=== PATIENT | male | born 1935 | race Caucasian/White ===

== ENCOUNTER 2016-07-29 11:52 | Emergency (ER) | payer MEDICARE, OTHER ==
[~2016-07-29] VITALS: Ht 182.9 cm; Wt 101.6 kg
[2016-07-29 14:03] LABS: Basophils # (auto) 0 uL; Basophils % (auto) 0.3 % (0.0-2.0); Eosinophils # (auto) 0.1 uL; Eosinophils % (auto) 0.7 % (0.0-7.0); Hematocrit 40.8 % (41.0-53.0); Hemoglobin 13.8 g/dL (13.5-17.5); Lymphocytes # (auto) 0.7 uL; Mean Corpuscular Hgb Conc. 33.9 g/dL (32.0-36.0); Mean Corpuscular Volume 88.4 fL (80.0-100.0); Mean Platelet Volume 8.4 fL (7.4-10.4); Monocytes # (auto) 0.8 uL; Monocytes % (auto) 10.7 % (0.0-12.0); Neutrophils % (auto) 79.3 % (37.0-80.0); Platelet Count (auto) 226 10^3/uL (140-450); Red Cell Distribution Width 15.8 % (11.6-16.0); White Blood Cell 7.6 10^3/uL (4.4-10.8)
[2016-07-29 14:27] LABS: Albumin 3.9 g/dL (3.4-5.0); BUN/Creatinine Ratio 17.5; Bilirubin, Total 0.4 mg/dL (0.2-1.0); Calcium 9.4 mg/dL (8.5-10.1); Total Protein 8.4 g/dL (6.4-8.2)
[2016-07-29 16:50] VITALS: BP 138/84
== END 2016-07-29 18:44 | disposition left against medical advice (07) ==
LOC: ER 11:52
DX: M79.632 Pain in left forearm (principal); R42 Dizziness and giddiness; W19.XXXA Unspecified fall, initial encounter; Z53.21 Procedure and treatment not carried out due to patient leaving prior to being seen by health care provider; Y93.89 Activity, other specified; Y99.8 Other external cause status; Y92.89 Other specified places as the place of occurrence of the external cause
CPT/HCPCS: 36415; 80053; 85025; 93005

== ENCOUNTER 2017-02-22 08:32 | Emergency (ER) | payer MEDICARE, OTHER ==
[~2017-02-22] VITALS: Ht 182.9 cm; Wt 100.7 kg
[2017-02-22 10:09] VITALS: BP 93/52
== END 2017-02-22 10:36 | disposition home or self-care (01) ==
LOC: ER 08:37
DX: S80.11XA Contusion of right lower leg, initial encounter (principal); S80.12XA Contusion of left lower leg, initial encounter; I48.91 Unspecified atrial fibrillation; X58.XXXA Exposure to other specified factors, initial encounter; Y93.89 Activity, other specified; Y92.89 Other specified places as the place of occurrence of the external cause; Y99.8 Other external cause status
CPT/HCPCS: 93005; 93971

== ENCOUNTER 2018-06-27 00:23 | Observation (INO) | payer MEDICARE, OTHER ==
[~2018-06-27] VITALS: Ht 182.9 cm; Wt 78.0 kg
[2018-06-27 07:03] LABS: Basophils # (auto) 0 uL; Basophils % (auto) 0.5 % (0.0-2.0); Eosinophils # (auto) 0 uL; Eosinophils % (auto) 0.6 % (0.0-7.0); Hematocrit 32.4 % (41.0-53.0); Hemoglobin 10.5 g/dL (13.5-17.5); Lymphocytes # (auto) 0.6 uL; Lymphocytes % (auto) 8.1 % (10.0-50.0); Mean Corpuscular Hemoglobin 28.4 pg (28.0-32.0); Mean Corpuscular Hgb Conc. 32.4 g/dL (32.0-36.0); Mean Corpuscular Volume 87.7 fL (80.0-100.0); Monocytes # (auto) 0.8 uL; Monocytes % (auto) 9.9 % (0.0-12.0); Neutrophils # (auto) 6.3 uL; Neutrophils % (auto) 80.9 % (37.0-80.0); Platelet Count (auto) 192 10^3/uL (140-450); Red Cell Distribution Width 15.9 % (11.8-14.3); White Blood Cell 7.8 10^3/uL (4.4-10.8)
[2018-06-27 07:18] LABS: Albumin 3.6 g/dL (3.4-5.0); Anion Gap 8 (5-15); BUN/Creatinine Ratio 16.7; Blood Alcohol < 3.0 mg/dL (0-5); Blood Urea Nitrogen 21 mg/dL (7-18); Calcium 9.2 mg/dL (8.5-10.1); Carbon Dioxide 28 mmol/L (21-32); Chloride 105 mmol/L (98-107); GFR African American 70 mL/min; GFR Non-African American 58 mL/min; Glucose 131 mg/dL (74-106); Magnesium 2.4 mg/dL (1.6-2.6); Potassium 4.5 mmol/L (3.5-5.1); Sodium 141 mmol/L (136-145)
[2018-06-27 07:23] LABS: Alanine Aminotransferase 18 U/L (16-61); Alkaline Phosphatase 82 U/L (45-117); Aspartate Aminotransferase 20 U/L (15-37); Bilirubin, Total 0.3 mg/dL (0.2-1.0); Total Protein 7.6 g/dL (6.4-8.2)
[2018-06-27 08:01] LABS: INR 1.04 (0.9-1.15); Partial Thromboplastin Time 27.5 sec (23.78-33.04)
[2018-06-27] MEDS ORDERED: cloNIDine HCL 0.1 MG TAB PO ONE (10:00)
[2018-06-27 10:29] LABS: Alcohol, Urine < 3.0 mg/dL (0-5); Amphetamine Screen, Urine NEGATIVE (NEGATIVE); Barbiturate Scree,Urine NEGATIVE (NEGATIVE); Benzodiazephine Screen, Urine NEGATIVE (NEGATIVE); Cannabinoid Screen, Urine NEGATIVE (NEGATIVE); Cocaine Screen, Urine NEGATIVE (NEGATIVE); Opiate Scree,Urine NEGATIVE (NEGATIVE); Phencyclidine Screen, Urine NEGATIVE (NEGATIVE); Urine Bacteria NONE SEEN /hpf (None Seen); Urine Blood Negative /uL (Negative); Urine Mucus FEW (None Seen); Urine Specific Gravity 1.018 (1.001-1.035); Urine WBC 18 /hpf (0 - 3)
[2018-06-27] MEDS ORDERED: IOHEXOL 350 MG/ML 100ML IJ ONE (11:54)
[2018-06-27 22:21] VITALS: BP 150/79
== END 2018-06-27 22:47 | disposition home or self-care (01) | DRG 880 ==
LOC: EDBD 00:23 → ER 00:28 → OVERFLOW 00:29 → ER 22:47
PROVIDERS: ADMIT Emergency Medicine; ATTEND Emergency Medicine
DX: R45.851 Suicidal ideations (principal); F33.3 Major depressive disorder, recurrent, severe with psychotic symptoms; E11.9 Type 2 diabetes mellitus without complications; I10 Essential (primary) hypertension; I48.91 Unspecified atrial fibrillation; F41.9 Anxiety disorder, unspecified; M19.90 Unspecified osteoarthritis, unspecified site; I25.2 Old myocardial infarction; Z79.899 Other long term (current) drug therapy; Z95.0 Presence of cardiac pacemaker
CPT/HCPCS: 36415; 71046; 71275; 80053; 80307; 80320; 81001; 83735; 84443; 84484; 85025; 85379; 85610; 85730; 93005; 99284; G0378; Q9967

== ENCOUNTER 2018-08-02 01:50 | Emergency (ER) | payer MEDICARE, OTHER ==
[~2018-08-02] VITALS: Ht 182.9 cm; Wt 78.0 kg
[2018-08-02] MEDS ORDERED: LORazepam 2MG/ML-1ML VIAL IV ONE (02:45)
[2018-08-02] MEDS ORDERED: SODIUM CHLORIDE 0.9% 1,000 ML IV ONE (02:45)
[2018-08-02 02:56] LABS: Basophils # (auto) 0 uL; Basophils % (auto) 0.2 % (0.0-2.0); Eosinophils # (auto) 0 uL; Eosinophils % (auto) 0.5 % (0.0-7.0); Hematocrit 30.6 % (41.0-53.0); Lymphocytes # (auto) 0.5 uL; Lymphocytes % (auto) 5.6 % (10.0-50.0); Mean Corpuscular Hemoglobin 28.1 pg (28.0-32.0); Mean Corpuscular Hgb Conc. 32.7 g/dL (32.0-36.0); Mean Corpuscular Volume 85.9 fL (80.0-100.0); Monocytes # (auto) 0.6 uL; Monocytes % (auto) 7.1 % (0.0-12.0); Neutrophils # (auto) 7.3 uL; Neutrophils % (auto) 86.6 % (37.0-80.0); Platelet Count (auto) 194 10^3/uL (140-450); Red Blood Cells 3.56 10^6/uL (4.5-5.90); Red Cell Distribution Width 15.9 % (11.8-14.3); White Blood Cell 8.4 10^3/uL (4.4-10.8)
[2018-08-02 03:06] LABS: Albumin 3.6 g/dL (3.4-5.0); Anion Gap 9 (5-15); BUN/Creatinine Ratio 15.6; Blood Alcohol < 3.0 mg/dL (0-5); Blood Urea Nitrogen 19 mg/dL (7-18); Carbon Dioxide 26 mmol/L (21-32); Chloride 105 mmol/L (98-107); GFR African American 73 mL/min; GFR Non-African American 60 mL/min; Glucose 148 mg/dL (74-106); Magnesium 2.1 mg/dL (1.6-2.6); Potassium 3.9 mmol/L (3.5-5.1); Salicylate < 1.7 mg/dL (2.8-20.0); Sodium 140 mmol/L (136-145)
[2018-08-02 03:19] LABS: Alanine Aminotransferase 16 U/L (16-61); Alkaline Phosphatase 91 U/L (45-117); Aspartate Aminotransferase 16 U/L (15-37); Bilirubin, Total 0.3 mg/dL (0.2-1.0); Creatine Kinase IFCC 51 U/L (39-308); Total Protein 7.8 g/dL (6.4-8.2)
[2018-08-02 03:20] LABS: Digoxin (Lanoxin) 0.4 ng/mL (0.8-2)
[2018-08-02 03:51] LABS: Acetaminophen < 2.0 ug/mL (10-30)
[2018-08-02 05:06] LABS: Urine Bacteria NONE SEEN /hpf (None Seen); Urine Blood Negative /uL (Negative); Urine Specific Gravity 1.019 (1.001-1.035); Urine WBC 1 /hpf (0 - 3)
[2018-08-02 05:12] LABS: Alcohol, Urine < 3.0 mg/dL (0-5); Amphetamine Screen, Urine NEGATIVE (NEGATIVE); Barbiturate Scree,Urine NEGATIVE (NEGATIVE); Benzodiazephine Screen, Urine NEGATIVE (NEGATIVE); Cannabinoid Screen, Urine NEGATIVE (NEGATIVE); Opiate Scree,Urine NEGATIVE (NEGATIVE); Phencyclidine Screen, Urine NEGATIVE (NEGATIVE)
[2018-08-02 05:16] LABS: Cocaine Screen, Urine NEGATIVE (NEGATIVE)
[2018-08-02] MEDS ORDERED: cloNIDine HCL 0.1 MG TAB PO ONE (13:30)
[2018-08-02] MEDS ORDERED: ZOLPIDEM TARTRATE 5 MG TAB PO PRN (17:30)
[2018-08-02 23:04] VITALS: BP 168/85
== END 2018-08-02 23:24 ==
LOC: EDBD 01:50 → ER 01:52
DX: R45.851 Suicidal ideations (principal); F32.9 Major depressive disorder, single episode, unspecified; I48.91 Unspecified atrial fibrillation; M19.90 Unspecified osteoarthritis, unspecified site; E11.9 Type 2 diabetes mellitus without complications; I10 Essential (primary) hypertension; I25.2 Old myocardial infarction; Z95.1 Presence of aortocoronary bypass graft; Z95.0 Presence of cardiac pacemaker
CPT/HCPCS: 36415; 71045; 80053; 80162; 80307; 80320; 80329; 81001; 82550; 83605; 83735; 83874; 83880; 84443; 84484; 85025; 96374; 99285; J2060; J7030

== ENCOUNTER 2019-01-27 13:11 | Inpatient (IN) | payer MEDICARE, OTHER ==
[~2019-01-27] VITALS: Ht 177.8 cm; Wt 86.2 kg
[2019-01-27] MEDS ORDERED: SODIUM CHLORIDE 0.9% 1,000 ML IV ONE (16:07)
[2019-01-27 17:52] LABS: Basophils # (auto) 0 uL; Eosinophils # (auto) 0 uL; Eosinophils % (auto) 0.6 % (0.0-7.0); Hemoglobin 11.1 g/dL (13.5-17.5); Lymphocytes # (auto) 0.8 uL; Monocytes # (auto) 0.8 uL; Red Blood Cells 4.15 10^6/uL (4.5-5.90)
[2019-01-27 17:54] LABS: Basophils % (auto) 0.4 % (0.0-2.0); Mean Corpuscular Hemoglobin 26.6 pg (28.0-32.0); Mean Corpuscular Hgb Conc. 32.5 g/dL (32.0-36.0); Mean Corpuscular Volume 81.8 fL (80.0-100.0); Monocytes % (auto) 10.7 % (0.0-12.0); Neutrophils # (auto) 5.6 uL; Neutrophils % (auto) 77.3 % (37.0-80.0); Platelet Count (auto) 197 10^3/uL (140-450); Red Cell Distribution Width 17.4 % (11.8-14.3); White Blood Cell 7.2 10^3/uL (4.4-10.8)
[2019-01-27 18:04] LABS: Albumin 3.6 g/dL (3.4-5.0); Anion Gap 9 (5-15); Blood Urea Nitrogen 21 mg/dL (7-18); Calcium 9.1 mg/dL (8.5-10.1); Carbon Dioxide 26 mmol/L (21-32); Chloride 101 mmol/L (98-107); Glucose 113 mg/dL (74-106); Magnesium 2.4 mg/dL (1.6-2.6); Sodium 136 mmol/L (136-145)
[2019-01-27 18:08] LABS: Alanine Aminotransferase 18 U/L (16-61); Alkaline Phosphatase 88 U/L (45-117); Aspartate Aminotransferase 23 U/L (15-37); Bilirubin, Total 0.3 mg/dL (0.2-1.0); GFR African American 69 mL/min; GFR Non-African American 57 mL/min; Total Protein 7.9 g/dL (6.4-8.2)
[2019-01-27 18:44] LABS: BUN/Creatinine Ratio 16.4
[2019-01-27] MEDS ORDERED: cloNIDine HCL 0.1 MG TAB PO ONE (19:15)
[2019-01-27 20:44] LABS: Urine Bacteria NONE SEEN /hpf (None Seen); Urine Blood Negative /uL (Negative); Urine Hyaline Cast FEW /lpf (0 - 2); Urine Mucus FEW (None Seen); Urine Specific Gravity 1.015 (1.001-1.035); Urine WBC 2 /hpf (0 - 3)
[2019-01-27 20:55] LABS: Alcohol, Urine < 3.0 mg/dL (0-5); Amphetamine Screen, Urine NEGATIVE (NEGATIVE); Barbiturate Scree,Urine NEGATIVE (NEGATIVE); Benzodiazephine Screen, Urine NEGATIVE (NEGATIVE); Cannabinoid Screen, Urine NEGATIVE (NEGATIVE); Cocaine Screen, Urine NEGATIVE (NEGATIVE); Opiate Scree,Urine NEGATIVE (NEGATIVE); Phencyclidine Screen, Urine NEGATIVE (NEGATIVE)
[2019-01-27] MEDS ORDERED: TEMAZEPAM 15 MG CAP PO PRN (21:00)
[2019-01-27] MEDS ORDERED: ONDANSETRON HCL 4 MG/2 ML VIAL IV PRN (21:00)
[2019-01-27] MEDS ORDERED: DOCUSATE SOD 100 MG CAP PO PRN (21:00)
[2019-01-27] MEDS ORDERED: cloNIDine HCL 0.1 MG TAB PO PRN (21:00)
[2019-01-27] MEDS ORDERED: ACETAMINOPHEN 325 MG TAB PO PRN (21:00)
[2019-01-27] MEDS ORDERED: MORPHINE SULF INJ 2 MG/ML SYRINGE 1ML IV PRN (21:45)
[2019-01-27] MEDS ORDERED: MECLIZINE HCL 25 MG TAB PO PRN (21:45)
[2019-01-27] MEDS ORDERED: NITROGLYCERIN 0.4 MG SL TAB SL PRN (21:45)
[2019-01-27] MEDS ORDERED: METOPROLOL TARTRATE 25 MG TAB PO SCH (22:00)
[2019-01-27] MEDS: FAMOTIDINE 20 MG TAB PO SCH (22:08)
[2019-01-27 22:56] LABS: INR 1.12 (0.9-1.15)
--- NOTE | 2019-01-27 22:56 | NUR ---
Telemetry admit from ER ROZ CARTER admitted to Telemetry unit after SBAR received. Patient oriented to Melita Barbosa, primary RN, unit, room, bed, and unit policies regarding patient care and visiting hours. Patient now on continuous telemetry monitoring, tele box #65 and telemetry reading on arrival to unit is . Patient placed on bedside oxygen, weighed by bedscale and encouraged to call if they need something. All questions and concerns addressed, patient verbalized understanding. Note:
[2019-01-28 05:00] VITALS: BP 153/84
[2019-01-28 05:52] LABS: Basophils # (auto) 0 uL; Eosinophils # (auto) 0.1 uL; Hemoglobin 10.7 g/dL (13.5-17.5); Lymphocytes # (auto) 0.6 uL; Neutrophils # (auto) 3.7 uL; Nucleated Red Blood Cells % 0.1 %; White Blood Cell 5.1 10^3/uL (4.4-10.8)
[2019-01-28 05:57] LABS: Basophils % (auto) 0.8 % (0.0-2.0); Eosinophils % (auto) 1.7 % (0.0-7.0); Hematocrit 32.4 % (41.0-53.0); Lymphocytes % (auto) 12.1 % (10.0-50.0); Mean Corpuscular Volume 81.8 fL (80.0-100.0); Monocytes # (auto) 0.7 uL; Monocytes % (auto) 13.8 % (0.0-12.0); Neutrophils % (auto) 71.6 % (37.0-80.0); Platelet Count (auto) 175 10^3/uL (140-450); Red Blood Cells 3.96 10^6/uL (4.5-5.90); Red Cell Distribution Width 16.9 % (11.8-14.3)
[2019-01-28 06:11] LABS: Calcium 8.9 mg/dL (8.5-10.1); Potassium 4.2 mmol/L (3.5-5.1)
[2019-01-28] MEDS: LEVOTHYROXINE SODIUM 100 MCG TAB PO SCH (06:32)
[2019-01-28 09:00] VITALS: BP 119/64
[2019-01-28] MEDS: APIXABAN 5 MG TAB PO SCH ×2 (09:40→20:58)
[2019-01-28] MEDS: FAMOTIDINE 20 MG TAB PO SCH (09:41)
[2019-01-28] MEDS: DIGOXIN 0.125 MG TAB PO SCH (09:41)
[2019-01-28] MEDS ORDERED: ASPirin 81 mg TAB PO SCH (10:00)
[2019-01-28] MEDS ORDERED: ENOXAPARIN SOD 40 MG/0.4 ML SYRINGE SC SCH (10:00)
[2019-01-28 13:22] VITALS: BP 122/67
[2019-01-28] MEDS: SODIUM CHLORIDE 0.9% 1,000 ML IV SCH (16:00)
[2019-01-28 16:13] VITALS: BP_SYST 157; BP_SYST 80; BP_DIAS 51; BP_DIAS 81
--- NOTE | 2019-01-28 19:02 | NUR ---
Opening Shift Note Assumed care of patient, awake and alert. No S/S of distress/SOB or pain. Instructed on POC and to call for assist PRN, will continue to monitor for changes Q1hr and PRN. Side rails up x2. Bed locked in lowest position. Call light within reach. Bed alarm on for safety.
[2019-01-28] MEDS: LOVASTATIN 40 MG PO SCH (20:58)
[2019-01-28 22:00] VITALS: BP 145/81
--- NOTE | 2019-01-28 22:00 | NUR ---
Emptied colostomy bag brown soft stool drained from colostomy bag.
[2019-01-29] VITALS (10 sets, daily range): BP systolic 81–186; BP diastolic 51–123
--- NOTE | 2019-01-29 00:40 | NUR ---
Endorsed care to non profit job titles YARA Odom
--- NOTE | 2019-01-29 00:41 | NUR ---
Received report from Александр LIVINGSTON. Patient resting and in no distress. Will continue to monitor.
[2019-01-29] MEDS: MIDODRINE HCL 10 MG TAB PO SCH ×3 (05:32→17:46)
--- NOTE | 2019-01-29 05:48 | NUR ---
Emptied colostomy bag Approximately 250 ml of brown soft stool drained from colostomy bag.
[2019-01-29] MEDS: LEVOTHYROXINE SODIUM 100 MCG TAB PO SCH (06:42)
[2019-01-29] MEDS: SODIUM CHLORIDE 0.9% 1,000 ML IV SCH (09:13)
--- NOTE | 2019-01-29 09:20 | NUR ---
pt ambulated with physical therapy using walker to the door and back to room, pt tolerated it well.
--- NOTE | 2019-01-29 09:30 | NUR ---
colostomy bag emptied
--- NOTE | 2019-01-29 09:50 | NUR ---
Spoke to Dr. Stanley and Dr. Zambrano at nurses station, made aware of the orthostatic blood pressure supine 160/83 sitting 112/71 standing 81/[address] Zambraon pt will continue taking midodrine as ordered and pt is okay to go home today or tomorrow.
[2019-01-29] MEDS: APIXABAN 5 MG TAB PO SCH ×2 (10:08→21:53)
[2019-01-29] MEDS: FAMOTIDINE 20 MG TAB PO SCH (10:09)
[2019-01-29] MEDS: DIGOXIN 0.125 MG TAB PO SCH (10:09)
--- NOTE | 2019-01-29 10:10 | NUR ---
pt seen by Dr. Stanley pt made aware for possible discharge tomorrow. to continue IV fluids as ordered.
--- NOTE | 2019-01-29 11:40 | NUR ---
called [employer] tel# [phone] for pacemaker interrogation spoke to Suzette.
--- NOTE | 2019-01-29 14:53 | NUR ---
NUTRITION ASSESSMENT NOTES Please refer to link notes of nutrition screen form filed under the intervention section of the plan of care for further details. Est. Needs: 1700 kcal to 2150 kcal (20-25 kcal/kgBW), 68 gms to 85 gms pro (0.8-1.0 gms/kgBW). Will continue to monitor pertinent labs and reassess nutrient need prn Thank you. Addendum: 01/29/19 at [address] Amended: Links added.
--- NOTE | 2019-01-29 16:10 | NUR ---
Received Consult to arrange home health to be resumed after discharged with [facility]. [employer] called [facility] to resume services. Spoke with Dipika and gave information about order. Faxed information to [facility]/ fax [phone]/ phone [phone]. Received confirmation.
--- NOTE | 2019-01-29 19:16 | NUR ---
Opening Shift Note Assumed care of patient, awake and alert. No S/S of distress/SOB or pain. Instructed on POC and to call for assist PRN, will continue to monitor for changes Q1hr and PRN. Side rails up x2. Bed locked in lowest position. Call light within reach.
--- NOTE | 2019-01-29 21:00 | NUR ---
Received a call from Hasmukh with [employer]. This RN was told that we needed to use our automatic pacemaker reader in order for them to assess the pacemaker.
[2019-01-29] MEDS: LOVASTATIN 40 MG PO SCH (21:52)
--- NOTE | 2019-01-29 23:30 | NUR ---
Automatic pacemaker reader completed. Will notify [employer].
--- NOTE | 2019-01-29 23:42 | NUR ---
Called [employer] to notify them regarding the completion of the automatic pacemaker reader. [employer] will fax over a copy.
--- NOTE | 2019-01-29 23:48 | NUR ---
Received report from [employer] regarding pacemaker. Will place copy in the chart.
[2019-01-30] MEDS: SODIUM CHLORIDE 0.9% 1,000 ML IV SCH (03:27)
[2019-01-30 04:45] VITALS: BP 164/97
[2019-01-30] MEDS: MIDODRINE HCL 10 MG TAB PO SCH ×2 (06:49→10:00)
[2019-01-30] MEDS: LEVOTHYROXINE SODIUM 100 MCG TAB PO SCH (06:49)
--- NOTE | 2019-01-30 07:20 | NUR ---
Endorsed care to day shift RN.
--- NOTE | 2019-01-30 07:30 | NUR ---
Opening Shift Note Assumed care of patient, awake and alert. No S/S of distress/SOB or pain. Instructed on POC and to call for assist PRN, will continue to monitor for changes Q1hr and PRN.
[2019-01-30 09:00] VITALS: BP_SYST 112; BP_SYST 119; BP_SYST 66; BP_SYST 85; BP_DIAS 40; BP_DIAS 42; BP_DIAS 60; BP_DIAS 66
[2019-01-30] MEDS: APIXABAN 5 MG TAB PO SCH (10:01)
[2019-01-30] MEDS: FAMOTIDINE 20 MG TAB PO SCH (10:01)
[2019-01-30] MEDS: DIGOXIN 0.125 MG TAB PO SCH (10:01)
--- NOTE | 2019-01-30 10:30 | NUR ---
Dr. Stanley in to see patient as hospitalist.
[2019-01-30 13:00] VITALS: BP 119/66
[2019-01-30] MEDS ORDERED: MID10T PO (13:02)
== END 2019-01-30 14:30 | disposition home health service (06) | DRG 312 ==
LOC: EDBD 13:11 → EDUNIT# 13:11 → ER 13:13 → TELE 13:14 → TELE-WESTW 22:48
PROVIDERS: ADMIT Nurse Practitioner; ATTEND Internal Medicine
PROC: 4B02XSZ Measurement of Cardiac Pacemaker, External Approach (ICD-10-PCS; principal; 2019-01-29)
DX: I95.1 Orthostatic hypotension (principal); I48.20 Chronic atrial fibrillation, unspecified; I25.810 Atherosclerosis of coronary artery bypass graft(s) without angina pectoris; I16.0 Hypertensive urgency; E03.9 Hypothyroidism, unspecified; R29.6 Repeated falls; E11.9 Type 2 diabetes mellitus without complications; E86.0 Dehydration; F32.9 Major depressive disorder, single episode, unspecified; M19.90 Unspecified osteoarthritis, unspecified site; Z66 Do not resuscitate; Z86.73 Personal history of transient ischemic attack (TIA), and cerebral infarction without residual deficits; I25.2 Old myocardial infarction; Z98.61 Coronary angioplasty status; Z95.2 Presence of prosthetic heart valve; Z79.01 Long term (current) use of anticoagulants; Z95.0 Presence of cardiac pacemaker
CPT/HCPCS: 36415; 70450; 71045; 80048; 80053; 80162; 80307; 81001; 83735; 84443; 84484; 85025; 85379; 85610; 85730; 87081; 93005; 93306; 93886; 96360; 96361; 96372; 97110; 97116; 97163; 97530; G0378

== ENCOUNTER 2019-01-30 23:04 | Emergency (ER) | payer MEDICARE, OTHER ==
[~2019-01-30] VITALS: Ht 182.9 cm; Wt 77.1 kg
[~2019-01-30 23:04] MED LIST: MID10T PO
[2019-01-31 00:13] LABS: Basophils # (auto) 0 uL; Basophils % (auto) 0.4 % (0.0-2.0); Eosinophils # (auto) 0 uL; Eosinophils % (auto) 0.2 % (0.0-7.0); Hematocrit 36.1 % (41.0-53.0); Lymphocytes # (auto) 0.8 uL; Lymphocytes % (auto) 7.9 % (10.0-50.0); Mean Corpuscular Hgb Conc. 33.3 g/dL (32.0-36.0); Mean Corpuscular Volume 80.9 fL (80.0-100.0); Monocytes # (auto) 1.1 uL; Monocytes % (auto) 11.4 % (0.0-12.0); Neutrophils % (auto) 80.1 % (37.0-80.0); Nucleated Red Blood Cells % 0.1 %; Platelet Count (auto) 210 10^3/uL (140-450); Red Blood Cells 4.46 10^6/uL (4.5-5.90); Red Cell Distribution Width 17.5 % (11.8-14.3); White Blood Cell 9.9 10^3/uL (4.4-10.8)
[2019-01-31 00:24] LABS: INR 1.2 (0.9-1.15); Partial Thromboplastin Time 30.8 sec (23.64-32.05)
[2019-01-31 00:28] LABS: Albumin 3.7 g/dL (3.4-5.0); Anion Gap 8 (5-15); Blood Urea Nitrogen 19 mg/dL (7-18); Calcium 9.1 mg/dL (8.5-10.1); Carbon Dioxide 24 mmol/L (21-32); Chloride 104 mmol/L (98-107); Glucose 113 mg/dL (74-106); Sodium 136 mmol/L (136-145)
[2019-01-31 00:30] LABS: Alanine Aminotransferase 18 U/L (16-61); Aspartate Aminotransferase 25 U/L (15-37); BUN/Creatinine Ratio 11.7; GFR African American 52 mL/min; GFR Non-African American 43 mL/min
[2019-01-31 00:32] LABS: Alkaline Phosphatase 88 U/L (45-117); Bilirubin, Total 0.5 mg/dL (0.2-1.0); Total Protein 8.3 g/dL (6.4-8.2)
[2019-01-31] MEDS ORDERED: LIDOCAINE 1% HCL (LOCAL ANESTH.) INJ 20ML MDV ONE (01:50)
[2019-01-31] MEDS ORDERED: LIDOCAINE W/ EPINEPHRINE 1% 20ML VIAL ID ONE (02:00)
[2019-01-31] MEDS ORDERED: cefTRIAXone W LIDOCAINE 1 GM IM IM ONE (02:00)
[2019-01-31] MEDS ORDERED: LIDOCAINE 1% HCL (LOCAL ANESTH.) INJ 20ML MDV ID ONE (02:00)
[2019-01-31] MEDS ORDERED: cefTRIAXone SOD 1,000 MG VL ONE (02:15)
[2019-01-31 06:00] VITALS: BP 116/54
== END 2019-01-31 06:48 | disposition home or self-care (01) ==
LOC: EDBD 23:04 → ER 23:06
DX: S01.111A Laceration without foreign body of right eyelid and periocular area, initial encounter (principal); R42 Dizziness and giddiness; E11.9 Type 2 diabetes mellitus without complications; I10 Essential (primary) hypertension; I25.2 Old myocardial infarction; Z95.1 Presence of aortocoronary bypass graft; Z95.0 Presence of cardiac pacemaker; W25.XXXA Contact with sharp glass, initial encounter; Y93.89 Activity, other specified; Y92.89 Other specified places as the place of occurrence of the external cause; Y99.8 Other external cause status
CPT/HCPCS: 12013; 36415; 70450; 70486; 71045; 72125; 80053; 84484; 85025; 85610; 85730; 93005; 96372; 99284; J0696; J2001

== ENCOUNTER 2019-10-15 05:00 | Inpatient (IN) | payer MEDICARE, OTHER ==
[~2019-10-15] VITALS: Ht 182.9 cm; Wt 79.0 kg
[2019-10-15 07:05] LABS: Albumin 3.2 g/dL (3.4-5.0); Calcium 9.2 mg/dL (8.5-10.1); Magnesium 1.7 mg/dL (1.6-2.6); Potassium 3.4 mmol/L (3.5-5.1)
[2019-10-15 07:06] LABS: Eosinophils # (auto) 0.2 10 ^3/uL (0-0.8); Lymphocytes # (auto) 0.4 10 ^3/uL (0.4-5.4); Mean Corpuscular Volume 80.8 fL (80.0-100.0)
[2019-10-15 07:08] LABS: Basophils # (auto) 0.1 10 ^3/uL (0-0.2); Basophils % (auto) 0.7 % (0.0-2.0); Eosinophils % (auto) 1.9 % (0.0-7.0); Hematocrit 27.3 % (41.0-53.0); Lymphocytes % (auto) 4.7 % (10.0-50.0); Mean Corpuscular Hemoglobin 26.7 pg (28.0-32.0); Monocytes # (auto) 0.5 10 ^3/uL (0-1.3); Monocytes % (auto) 6.6 % (0.0-12.0); Neutrophils # (auto) 6.9 10 ^3/uL (1.6-8.6); Neutrophils % (auto) 86.1 % (37.0-80.0); Nucleated Red Blood Cells % 0.1 %; Platelet Count (auto) 318 10^3/uL (140-450); Red Blood Cells 3.38 10^6/uL (4.5-5.90); Red Cell Distribution Width 19.3 % (11.8-14.3)
[2019-10-15 07:10] LABS: BUN/Creatinine Ratio 13.8; Bilirubin, Total 0.5 mg/dL (0.2-1.0); Total Protein 8.3 g/dL (6.4-8.2)
[2019-10-15 08:32] LABS: Urine Bacteria NONE SEEN /hpf (None Seen); Urine Blood 3+ /uL (Negative); Urine Specific Gravity 1.014 (1.001-1.035); Urine WBC 16 /hpf (0 - 3)
[2019-10-15] MEDS ORDERED: cefTRIAXone 1GM/50ML D5W 50 ML IV ONE (09:00)
[2019-10-15] MEDS ORDERED: ASPirin 81 mg TAB PO ONE (09:00)
[2019-10-15 09:28] LABS: CRP High Sensitivity 10.6 mg/dL (< 0.3)
[2019-10-15] MEDS ORDERED: POTASSIUM CHL 10 Meq TABLET PO ONE (12:15)
[2019-10-15] MEDS ORDERED: DexAMETHasone SOD PHOS 10MG/1ML VIAL INJ IV ONE (12:15)
[2019-10-15] MEDS ORDERED: NITROGLYCERIN 0.4 MG SL TAB SL PRN (12:15)
[2019-10-15] MEDS ORDERED: ZINC SULFATE 220mg CAP or TAB PO ONE (12:15)
[2019-10-15] MEDS ORDERED: MORPHINE SULF INJ 2 MG/ML SYRINGE 1ML IV PRN (12:15)
[2019-10-15] MEDS: SODIUM CHLORIDE 0.9% 1,000 ML IV SCH (13:01)
[2019-10-15] MEDS ORDERED: amLODIPine BESYLATE 5 MG TAB PO ONE (14:15)
[2019-10-15] MEDS: MIDODRINE HCL 10 MG TAB PO SCH (18:00)
[2019-10-15 18:20] VITALS: BP 178/91
--- NOTE | 2019-10-15 18:25 | NUR ---
Patient arrived to room via gurney from ER. Patient oriented to room, 2 x side rails up, bed in locked and lowest position and bed alarm on. Patient VS: 148/75, 90, 98%. 18, 98.0. No complaints of pain or discomfort at this time. Will continue to monitor.
--- NOTE | 2019-10-15 19:00 | NUR ---
Opening Shift Note Assumed care of patient, awake and alert, patient oriented x2. No S/S of distress/SOB or pain. Patient making repeat attempts to leave his bed unaccompanied. Patient is unsteady. Fall alarm on. Patient on 2L NC. Safety measures in place bed in lowest position, side rails up x2, and call light within reach. Instructed on POC and to call for assist PRN, will continue to monitor for changes Q1hr and PRN.
--- NOTE | 2019-10-15 19:15 | NUR ---
Patient attempting to get out of bed. Patient provided call light, and television turned on to help distract patient. Fall alarm on.
--- NOTE | 2019-10-15 19:31 | NUR ---
Admission wound photos endorsed to night RN
--- NOTE | 2019-10-15 20:00 | NUR ---
Patient attempting to get out of bed. Patient discouraged to leave bed unassisted. Patient placed in chair. Rounding q10 mins. Patient has remote and encouraged to call for help. Patient demonstrated use of call light. Will continue to monitor.
--- NOTE | 2019-10-15 20:30 | NUR ---
Patient called requesting to return to bed. Patient in bed, call light within reach, side rails up x2, and fall alarm on.
[2019-10-15 22:00] VITALS: BP 145/90
[2019-10-15] MEDS ORDERED: PRAVASTATIN SODIUM 20 MG TAB PO SCH (22:00)
[2019-10-15] MEDS: PRAMIPEXOLE DIHYDROCHLORIDE MO 0.25 MG TAB PO SCH (22:22)
[2019-10-15] MEDS: FAMOTIDINE 20 MG TAB PO SCH (22:22)
[2019-10-15] MEDS: APIXABAN 2.5 MG TAB PO SCH (22:23)
[2019-10-16] MEDS ORDERED: HALOPERIDOL LACTATE 5 MG/ML INJ VIAL IM PRN (00:45)
--- NOTE | 2019-10-16 05:23 | NUR ---
Patient presented to floor with several abrasions, and hematoma. Pictures taken for reference. Pictures taken at two separate times, patient anxious and trying to get out of bed. Patient's sacrum reddened, wound consult will be placed for specialty mattress, optifoam applied. Will endorse to dayshift RN.
[2019-10-16 05:28] VITALS: BP 139/81
[2019-10-16] MEDS: MIDODRINE HCL 10 MG TAB PO SCH (05:39)
[2019-10-16] MEDS: LEVOTHYROXINE SODIUM 100 MCG TAB PO SCH (06:41)
--- NOTE | 2019-10-16 07:07 | NUR ---
Respiratory note: POX CHECK, PT WAS AWAKE WITH SITTER AT BEDSIDE, NO DISTRESS NOTED. HR 61, RR 16, SPO2 100% ON 2L N/C.
--- NOTE | 2019-10-16 07:30 | NUR ---
Opening Shift Note Assumed care of patient, awake and alert X1, pt is calm and resting at this time. No S/S of distress/SOB or pain. Instructed on POC and to call for assist PRN, will continue to monitor for changes Q1hr and PRN.
[2019-10-16 08:45] LABS: Hemoglobin 9.1 g/dL (13.5-17.5); Red Cell Distribution Width 19.8 % (11.8-14.3)
[2019-10-16 08:47] LABS: Mean Corpuscular Hemoglobin 26.1 pg (28.0-32.0); Mean Corpuscular Hgb Conc. 30.4 g/dL (32.0-36.0); Mean Corpuscular Volume 85.7 fL (80.0-100.0); Platelet Count (auto) 292 10^3/uL (140-450); White Blood Cell 9.6 10^3/uL (4.4-10.8)
[2019-10-16 08:54] LABS: Basophils % (manual) 0 (0.0-2.0); Blast Cells 0; Eosinophils % (manual) 0 (0-7); Metamyelocytes % 0; Myelocytes % 0; Promyelocytes % 0; Reactive Lymphocytes 0
[2019-10-16 08:58] LABS: INR 1.19 (0.9-1.15); Partial Thromboplastin Time 24.7 sec (23.0-31.2)
[2019-10-16 09:00] VITALS: BP 139/79
[2019-10-16 09:02] LABS: BUN/Creatinine Ratio 22.1; Calcium 8.8 mg/dL (8.5-10.1); Potassium 3.9 mmol/L (3.5-5.1)
[2019-10-16 09:24] LABS: Band Neutrophils % (manual) 2; Lymphocytes % (manual) 1 (10.0-50.0); Monocytes % (manual) 4 (0-12)
[2019-10-16] MEDS ORDERED: LORazepam 2MG/ML-1ML VIAL IV PRN (11:00)
--- NOTE | 2019-10-16 11:00 | NUR ---
Patient more confused, continues to try and get out of bed, tearful regarding , patient put back in bed reoriented, md called regarding anxiety, patient daughter states that he take ativan at home. New orders received, will continue to monitor.
[2019-10-16] MEDS ORDERED: LORazepam 2MG/ML-1ML VIAL ONE (11:02)
[2019-10-16] MEDS: cefTRIAXone 1GM/50ML D5W 50 ML IV SCH (11:22)
[2019-10-16] MEDS: DexAMETHasone SOD PHOS 10MG/1ML VIAL INJ IV SCH (11:23)
[2019-10-16] MEDS: APIXABAN 2.5 MG TAB PO SCH ×2 (11:23→22:21)
[2019-10-16] MEDS: ZINC SULFATE 220mg CAP or TAB PO SCH (11:23)
[2019-10-16] MEDS: DIGOXIN 0.125 MG TAB PO SCH (11:24)
[2019-10-16] MEDS: amLODIPine BESYLATE 5 MG TAB PO SCH (11:24)
[2019-10-16] MEDS: ASCORBIC ACID 500 MG TAB PO SCH (11:25)
[2019-10-16] MEDS: diphenhdrAMINE HCL 50 MG/1 ML VL IV PRN (12:58)
[2019-10-16] MEDS: MORPHINE SULF INJ 2 MG/ML SYRINGE 1ML IV PRN (15:36)
--- NOTE | 2019-10-16 15:44 | NUR ---
Patient continues to be confused, reports pain to knees and body from his fall, medicated per order, sitter at bedside, will continue to monitor.
[2019-10-16 16:46] VITALS: BP 147/90
--- NOTE | 2019-10-16 17:02 | NUR ---
WOUND CARE NOTE: Wound care in to see patient per wound care request regarding multiple wounds/skin issue that are noted present on admission. Bedside nurse took photograph of patient's wounds upon admission for reference. Patient is 83 years old male with admitting diagnosis of Syncope. Patient is resting in bed in Rm. 249A. Patient is awake with confusion. Nurse's aide at bedside. Patient is able to assist in turning and repositioning. His Can score is 17. Skin assessment done with the assistance of patient's nurse, YARA Watson. Patient noted with multiple dry scabbed wounds to bilateral arm and BLE. Multiple abrasions and ecchymosis noted to his Rt head, Rt periorbital, hips,knees arms and legs. Wounds and abrasions are scabbed and dry, left open to air. Moist red area noted to his intragluteal fold, bilateral groin and scrotal area, consistent with intertriginous dermatitis. Patient is receiving BID/PRN cleaning and application of Antifungal clear to intertrigo per MD order. Patient tolerated well, repositioned for comfort. Nurse's aide at bedside. RECOMMENDATION: Nursing to continue with BID/PRN cleaning and application of Barrier cream to sacrum, perineum intertrigo per MD order,frequent turning and repositioning schedule as condition permits, redistribute pressure points with pillows, elevate heels on pillows,continue monitoring by wound care while patient is hospitalized. Addendum: 10/16/19 at 1742 by Gwen Mota RN Amended: Links added.
[2019-10-16] MEDS: SODIUM CHLORIDE 0.9% 1,000 ML IV SCH ×2 (18:50→23:02)
--- NOTE | 2019-10-16 19:10 | NUR ---
opening note pt is alert to self an situation only. respirations even and nonlabored on 2Lnc. pt has a sitter due to confusion, fall risk, and attempting to pull lines and ambulate without assistance. no s/s of pain or distress at this time. bed in low locked position, call light within reach. side rails up x2.
[2019-10-16 22:00] VITALS: BP 142/88
[2019-10-16] MEDS: FAMOTIDINE 20 MG TAB PO SCH (22:22)
[2019-10-16] MEDS: PRAMIPEXOLE DIHYDROCHLORIDE MO 0.25 MG TAB PO SCH (22:22)
--- NOTE | 2019-10-17 04:00 | NUR ---
IV discontinued at the left AC due to infiltration. catheter remained fully intact upon removal.
[2019-10-17 05:00] VITALS: BP 134/76
[2019-10-17] MEDS: LEVOTHYROXINE SODIUM 100 MCG TAB PO SCH (06:50)
--- NOTE | 2019-10-17 06:55 | NUR ---
new IV placed at the right forearm, 22g. pt tolerated insertion well.
--- NOTE | 2019-10-17 07:29 | NUR ---
Opening Shift Note Assumed care of patient, awake and alert x1, sitter at bedside. No S/S of distress/SOB or pain. Instructed on POC and to call or assist PRN, will continue to monitor for changes Q1hr and PRN.
[2019-10-17 08:11] LABS: Basophils # (auto) 0 10 ^3/uL (0-0.2); Eosinophils # (auto) 0.2 10 ^3/uL (0-0.8); Hemoglobin 8.5 g/dL (13.5-17.5); Neutrophils # (auto) 7.1 10 ^3/uL (1.6-8.6); White Blood Cell 8.1 10^3/uL (4.4-10.8)
[2019-10-17 08:14] LABS: Basophils % (auto) 0.4 % (0.0-2.0); Eosinophils % (auto) 2.1 % (0.0-7.0); Hematocrit 26.6 % (41.0-53.0); Lymphocytes # (auto) 0.3 10 ^3/uL (0.4-5.4); Lymphocytes % (auto) 3.3 % (10.0-50.0); Mean Corpuscular Volume 81.4 fL (80.0-100.0); Monocytes # (auto) 0.5 10 ^3/uL (0-1.3); Monocytes % (auto) 6.7 % (0.0-12.0); Neutrophils % (auto) 87.5 % (37.0-80.0); Platelet Count (auto) 281 10^3/uL (140-450); Red Blood Cells 3.27 10^6/uL (4.5-5.90); Red Cell Distribution Width 19.2 % (11.8-14.3)
[2019-10-17 08:37] LABS: BUN/Creatinine Ratio 22.3; Calcium 8.5 mg/dL (8.5-10.1); Magnesium 1.8 mg/dL (1.6-2.6); Potassium 3.7 mmol/L (3.5-5.1)
[2019-10-17 09:00] VITALS: BP 139/74
--- NOTE | 2019-10-17 11:00 | NUR ---
Patient continues to be confused, reports pain in bladder area, patient urinating in small amounts, md notified, neville cath inserted, 500ml of eder color urine. Patient states he feels better, will continue to monitor.
[2019-10-17] MEDS: cefTRIAXone 1GM/50ML D5W 50 ML IV SCH (11:05)
[2019-10-17] MEDS: DexAMETHasone SOD PHOS 10MG/1ML VIAL INJ IV SCH (11:06)
[2019-10-17] MEDS: ZINC SULFATE 220mg CAP or TAB PO SCH (11:06)
[2019-10-17] MEDS: APIXABAN 2.5 MG TAB PO SCH ×2 (11:06→21:36)
[2019-10-17] MEDS: DIGOXIN 0.125 MG TAB PO SCH (11:06)
[2019-10-17] MEDS: amLODIPine BESYLATE 5 MG TAB PO SCH (11:19)
[2019-10-17] MEDS: ASCORBIC ACID 500 MG TAB PO SCH (11:20)
[2019-10-17] MEDS: diphenhdrAMINE HCL 50 MG/1 ML VL IV PRN (11:22)
[2019-10-17] MEDS: LORazepam 2MG/ML-1ML VIAL IV PRN ×2 (12:11→21:35)
[2019-10-17] MEDS: FAMOTIDINE 20 MG TAB PO SCH ×2 (12:22→21:35)
[2019-10-17 13:00] VITALS: BP 157/90
[2019-10-17] MEDS: MORPHINE SULF INJ 2 MG/ML SYRINGE 1ML IV PRN ×2 (14:07→23:26)
[2019-10-17] MEDS: HALOPERIDOL LACTATE 5 MG/ML INJ VIAL IM PRN (16:11)
[2019-10-17 17:00] VITALS: BP 138/78
[2019-10-17] MEDS: PRAMIPEXOLE DIHYDROCHLORIDE MO 0.25 MG TAB PO SCH (21:35)
[2019-10-17 22:00] VITALS: BP 154/83
[2019-10-18] MEDS: HALOPERIDOL LACTATE 5 MG/ML INJ VIAL IM PRN (01:37)
[2019-10-18 04:58] VITALS: BP 134/79
--- NOTE | 2019-10-18 05:30 | NUR ---
changed ileostomy bag.
[2019-10-18 05:58] LABS: Basophils # (auto) 0 10 ^3/uL (0-0.2); Basophils % (auto) 0.2 % (0.0-2.0); Eosinophils # (auto) 0 10 ^3/uL (0-0.8); Hematocrit 28.1 % (41.0-53.0); Hemoglobin 8.8 g/dL (13.5-17.5); Lymphocytes # (auto) 0.2 10 ^3/uL (0.4-5.4); Lymphocytes % (auto) 2.6 % (10.0-50.0); Mean Corpuscular Hgb Conc. 31.5 g/dL (32.0-36.0); Mean Corpuscular Volume 82.7 fL (80.0-100.0); Monocytes # (auto) 0.4 10 ^3/uL (0-1.3); Neutrophils # (auto) 7.6 10 ^3/uL (1.6-8.6); Neutrophils % (auto) 92.2 % (37.0-80.0); Nucleated Red Blood Cells % 0.1 %; Platelet Count (auto) 254 10^3/uL (140-450); Red Cell Distribution Width 19.9 % (11.8-14.3); White Blood Cell 8.3 10^3/uL (4.4-10.8)
[2019-10-18 06:20] LABS: BUN/Creatinine Ratio 25.6; Calcium 8.8 mg/dL (8.5-10.1)
[2019-10-18] MEDS: LEVOTHYROXINE SODIUM 100 MCG TAB PO SCH (06:35)
--- NOTE | 2019-10-18 07:01 | NUR ---
closing note pt resting in semi fowlers with HOB at 30 degrees. respirations even and nonlabored on room air. pt has sitter. pt is resting comfortably. endorsed care to day shift rn.
[2019-10-18 09:00] VITALS: BP 115/59
[2019-10-18] MEDS: cefTRIAXone 1GM/50ML D5W 50 ML IV SCH (09:01)
[2019-10-18] MEDS: DexAMETHasone SOD PHOS 10MG/1ML VIAL INJ IV SCH (09:01)
[2019-10-18] MEDS: APIXABAN 2.5 MG TAB PO SCH ×2 (09:01→22:10)
[2019-10-18] MEDS: ZINC SULFATE 220mg CAP or TAB PO SCH (09:01)
[2019-10-18] MEDS: FAMOTIDINE 20 MG TAB PO SCH (09:02)
[2019-10-18] MEDS: amLODIPine BESYLATE 5 MG TAB PO SCH (09:02)
[2019-10-18] MEDS: ASCORBIC ACID 500 MG TAB PO SCH (09:02)
[2019-10-18] MEDS: DIGOXIN 0.125 MG TAB PO SCH (09:03)
[2019-10-18] MEDS: HYDROcodone-ACET 5/325MG TAB PO PRN ×2 (09:03→14:59)
--- NOTE | 2019-10-18 11:19 | NUR ---
Patient worked with PT and suring patient therapy while walking with walker patient was not able to tolerate, and desaturated to 77%, patient began to feel week, PT was able to be assisted to bed, patient said he was very tired, may have had a syncopal episode while in bed, code assist was called by ENTERPRISE ARCHITECT MANAGER when patient's oxygen levels were at 77% and, upon finding patient I applied o2 mask patient's oxygen at 6L was 100%, patients still in a-fib at 160, which is the same rhythm and rate as yesterday.
--- NOTE | 2019-10-18 12:24 | NUR ---
Dr Mcdonnell at bedside, updated on patients episode this AM.
[2019-10-18] MEDS ORDERED: MIDODRINE HCL 10 MG TAB PO ONE (12:30)
[2019-10-18 13:00] VITALS: BP 169/91
[2019-10-18] MEDS: LORazepam 2MG/ML-1ML VIAL IV PRN (13:42)
--- NOTE | 2019-10-18 13:45 | NUR ---
Patient verbalized he is anxious, wants to sleep, patient declined to do orthostatic vitals at this time. Patient medicated for anxiety
[2019-10-18 15:12] VITALS: BP 157/95
--- NOTE | 2019-10-18 15:16 | NUR ---
Nutrition Assessment Notes Please refer to link for full assessment notes. Est Energy needs: 7636-9675 kcals (20-23 kcal/kgBW) Est Protein needs: 80-88 gms/day (1.0-1.1 gm/kgBW) Will continue to monitor and reassess prn. Addendum: 10/18/19 at [address] Amended: Links added.
[2019-10-18] MEDS: MORPHINE SULF INJ 2 MG/ML SYRINGE 1ML IV PRN ×2 (15:46→20:33)
--- NOTE | 2019-10-18 16:16 | NUR ---
Orthostatic vitals: Laying- 136/68, HR 90, Sitting- 149/87 HR 91, Standing 116/93 HR 119. Patient c/o weakness in legs "my legs are going to give out".
[2019-10-18 16:43] VITALS: BP 136/68
--- NOTE | 2019-10-18 16:49 | NUR ---
Patients behaviors increasing, patient yelling out names a couple times. Patient so far has been able to be distracted by sitter.
--- NOTE | 2019-10-18 17:14 | NUR ---
Patient's family called, daughter says patient was never this confused he was very sharp and always knew what was going on with current events ect. patient is still oriented only to self, I explained that it could be many things, however I explained that the Dr's will ultimately let them know what may be causing it.
[2019-10-18] MEDS: MIDODRINE HCL 10 MG TAB PO SCH (17:37)
[2019-10-18] MEDS: diphenhdrAMINE HCL 50 MG/1 ML VL IV PRN (18:09)
--- NOTE | 2019-10-18 18:48 | NUR ---
patient continues to have behaviors, occasionally yells out names, and wants to get out of the bed, however when patient is out of the bed he is not able to walk or stand.
--- NOTE | 2019-10-18 18:55 | NUR ---
closing note patient with sitter at bedside, confused, oriented x1 (self), patient does not complain of any SOB or pain, RR even and unlabored. No s/s of distress noted at this time.
--- NOTE | 2019-10-18 19:20 | NUR ---
Opening Shift Note Assumed care of patient, AOX2 and confused. No S/S of distress/SOB or pain. Instructed on POC and to call for assist PRN. Bed in lowest locked position, call light within reach, side rails up x2. Will continue to monitor for changes Q1hr and PRN.
[2019-10-18 22:00] VITALS: BP 123/103
[2019-10-18] MEDS: PRAMIPEXOLE DIHYDROCHLORIDE MO 0.25 MG TAB PO SCH (22:12)
--- NOTE | 2019-10-18 22:54 | NUR ---
Respiratory note: POX CHECK, PT WAS AWAKE WITH SITTER AT BEDSIDE, NO DISTRESS NOTED. HR 77, RR 16, SPO2 100% ON 2L N/C.
--- NOTE | 2019-10-19 01:21 | NUR ---
no IV insertion no iv access , multiple attempts by stuff rn's unsuccessfully.Charge aware.will endorse
--- NOTE | 2019-10-19 03:15 | NUR ---
IV insertion IV access obtained, via clean sterile technique by inserting 24 gauge catheter at right FA after 2 attempt by charge nurse isaac. IV secured properly. No trauma to site. Patient tolerated procedure well.
[2019-10-19] MEDS: LORazepam 2MG/ML-1ML VIAL IV PRN ×2 (03:25→21:12)
[2019-10-19 05:00] VITALS: BP 108/85
[2019-10-19] MEDS: MORPHINE SULF INJ 2 MG/ML SYRINGE 1ML IV PRN (05:13)
[2019-10-19] MEDS: LEVOTHYROXINE SODIUM 100 MCG TAB PO SCH (06:12)
[2019-10-19] MEDS: MIDODRINE HCL 10 MG TAB PO SCH ×3 (06:12→18:42)
[2019-10-19 08:26] LABS: Hematocrit 27.9 % (41.0-53.0); White Blood Cell 16.1 10^3/uL (4.4-10.8)
[2019-10-19 08:28] LABS: Hemoglobin 8.7 g/dL (13.5-17.5); Mean Corpuscular Hemoglobin 25.6 pg (28.0-32.0); Mean Corpuscular Hgb Conc. 31.3 g/dL (32.0-36.0); Mean Corpuscular Volume 81.8 fL (80.0-100.0); Platelet Count (auto) 319 10^3/uL (140-450); Red Blood Cells 3.41 10^6/uL (4.5-5.90); Red Cell Distribution Width 19.7 % (11.8-14.3)
[2019-10-19 08:41] LABS: Basophils % (manual) 0 (0.0-2.0); Blast Cells 0; Eosinophils % (manual) 0 (0-7); Metamyelocytes % 0; Myelocytes % 0; Promyelocytes % 0; Reactive Lymphocytes 0
[2019-10-19 08:45] LABS: BUN/Creatinine Ratio 28.7; Calcium 9.1 mg/dL (8.5-10.1); Potassium 4.2 mmol/L (3.5-5.1)
[2019-10-19 09:00] VITALS: BP 130/80
[2019-10-19 09:11] LABS: Band Neutrophils % (manual) 1; Lymphocytes % (manual) 4 (10.0-50.0); Monocytes % (manual) 4 (0-12)
[2019-10-19 12:00] VITALS: BP 134/76
[2019-10-19] MEDS: ASCORBIC ACID 500 MG TAB PO SCH (13:07)
[2019-10-19] MEDS: FAMOTIDINE 20 MG TAB PO SCH (13:07)
[2019-10-19] MEDS: ZINC SULFATE 220mg CAP or TAB PO SCH (13:08)
[2019-10-19] MEDS: APIXABAN 2.5 MG TAB PO SCH ×2 (13:08→21:12)
[2019-10-19] MEDS: cefTRIAXone 1GM/50ML D5W 50 ML IV SCH (13:08)
[2019-10-19] MEDS: DexAMETHasone SOD PHOS 10MG/1ML VIAL INJ IV SCH (13:08)
[2019-10-19] MEDS: DIGOXIN 0.125 MG TAB PO SCH (13:10)
[2019-10-19 17:00] VITALS: BP 140/80
[2019-10-19] MEDS ORDERED: APIX5TAB PO (17:08)
[2019-10-19] MEDS ORDERED: GABA100C9 PO (17:08)
[2019-10-19] MEDS ORDERED: LOVA40TA72 PO (17:08)
[2019-10-19] MEDS ORDERED: SERT-376 PO (17:08)
[2019-10-19] MEDS ORDERED: DIGO0.12 PO (17:08)
[2019-10-19] MEDS ORDERED: LEVO100T8 PO (17:08)
[2019-10-19] MEDS ORDERED: TEMA15CA91 PO (17:09)
[2019-10-19] MEDS ORDERED: LORA1TAB23 PO (17:09)
[2019-10-19] MEDS ORDERED: TEMA30CA PO (17:09)
--- NOTE | 2019-10-19 17:31 | NUR ---
PAGED DR HEATH HEART RATE CONTINUES TO BE ABOVE 130
--- NOTE | 2019-10-19 17:52 | NUR ---
DR HEATH AWARE OF HEART RATE NO NEW ORDERS GIVEN
--- NOTE | 2019-10-19 19:00 | NUR ---
Opening Shift Note Assumed care of patient, awake and confused. No S/S of distress/SOB or pain. Patient on 2L NC. Patient safety measures in place bed in lowest position, side rails up x2, call light within reach, fall alarm on, and sitter at the bedside. Instructed on POC and to call for assist PRN, will continue to monitor for changes Q1hr and PRN.
[2019-10-19] MEDS: PRAMIPEXOLE DIHYDROCHLORIDE MO 0.25 MG TAB PO SCH (21:12)
[2019-10-19] MEDS: diphenhdrAMINE HCL 50 MG/1 ML VL IV PRN (23:39)
[2019-10-20] MEDS: HYDROcodone-ACET 5/325MG TAB PO PRN (04:04)
[2019-10-20 04:56] VITALS: BP 151/91
[2019-10-20] MEDS: MIDODRINE HCL 10 MG TAB PO SCH ×3 (06:00→17:29)
[2019-10-20] MEDS: LEVOTHYROXINE SODIUM 100 MCG TAB PO SCH (06:32)
--- NOTE | 2019-10-20 07:31 | NUR ---
Respiratory note: POX CHECK, PT WAS AWAKE WITH SITTER AT BEDSIDE, NO DISTRESS NOTED. HR 117, RR 16, SPO2 98% ON 2L N/C.
[2019-10-20 08:00] VITALS: BP 144/94
[2019-10-20] MEDS: APIXABAN 2.5 MG TAB PO SCH ×2 (09:57→22:37)
[2019-10-20] MEDS: cefTRIAXone 1GM/50ML D5W 50 ML IV SCH (09:57)
[2019-10-20] MEDS: METOPROLOL SUCCINATE XL 50 MG TAB PO SCH (09:58)
[2019-10-20] MEDS: ASCORBIC ACID 500 MG TAB PO SCH (09:58)
[2019-10-20] MEDS: FAMOTIDINE 20 MG TAB PO SCH (09:58)
[2019-10-20] MEDS: DexAMETHasone SOD PHOS 10MG/1ML VIAL INJ IV SCH (09:59)
[2019-10-20] MEDS: DIGOXIN 0.125 MG TAB PO SCH (09:59)
[2019-10-20] MEDS: ZINC SULFATE 220mg CAP or TAB PO SCH (09:59)
--- NOTE | 2019-10-20 11:30 | NUR ---
ROUNDING MD Constantine BUNDY AT BEDSIDE. ALL QUESTIONS AND CONCERNS ADDRESSED AT THIS TIME.
--- NOTE | 2019-10-20 11:38 | NUR ---
MIDODRINE HELD ELEVATED BP 145/87
[2019-10-20] MEDS ORDERED: cefTRIAXone 1GM/50ML D5W 50 ML IV ONE (11:45)
[2019-10-20 13:00] VITALS: BP 152/81
[2019-10-20] MEDS: LORazepam 2MG/ML-1ML VIAL IV PRN (15:47)
[2019-10-20 17:00] VITALS: BP 141/98
--- NOTE | 2019-10-20 17:20 | NUR ---
IMPORTANT NOTIFICATION TO PATIENT IF YOUR HEALTH CONDITION DOES NOT IMPROVE OR CONTINUES TO WORSEN CONTACT YOUR PRIMARY CARE PROVIDER IMMIDIATELY OR GO TO THE NEAREST EMERGENCY DEPARTMENT FOR EVALUATION
[2019-10-20] MEDS: Ensure HIGH Protein Chocolate 8oz Bottle PO SCH (17:29)
--- NOTE | 2019-10-20 17:29 | NUR ---
PT TAKEN DOWN TO RADIOLOGY BY TECH AND SITTER SECURITY AND EVS PRESENT
--- NOTE | 2019-10-20 17:45 | NUR ---
PT ARRIVAL BACK TO UNIT FROM RADIOLOGY
--- NOTE | 2019-10-20 20:56 | NUR ---
CALL PLACED TO HOSPITALIST FOR AFIB IN 130-160'S. AWAITING CALLBACK.
[2019-10-20] MEDS ORDERED: dilTIAZem 25 MG/5 ML VIAL IV ONE (21:15)
--- NOTE | 2019-10-20 21:15 | NUR ---
HOSPITALIST CALLED BACK AND ORDERED CARDIZEM 10 MG IV X1.
[2019-10-20 22:00] VITALS: BP 143/83
[2019-10-20] MEDS: PRAMIPEXOLE DIHYDROCHLORIDE MO 0.25 MG TAB PO SCH (22:38)
[2019-10-21 05:00] VITALS: BP 135/76
[2019-10-21] MEDS: LEVOTHYROXINE SODIUM 100 MCG TAB PO SCH (06:33)
[2019-10-21] MEDS: MIDODRINE HCL 10 MG TAB PO SCH ×3 (06:33→18:00)
[2019-10-21 07:59] LABS: Calcium 8.8 mg/dL (8.5-10.1); Potassium 4.8 mmol/L (3.5-5.1)
[2019-10-21 08:07] LABS: BUN/Creatinine Ratio 37.2; CRP High Sensitivity 6.48 mg/dL (< 0.3)
[2019-10-21 09:00] VITALS: BP 132/72
[2019-10-21] MEDS: METOPROLOL SUCCINATE XL 50 MG TAB PO SCH ×2 (10:00→10:07)
[2019-10-21] MEDS: ZINC SULFATE 220mg CAP or TAB PO SCH ×2 (10:00→10:05)
[2019-10-21] MEDS: APIXABAN 2.5 MG TAB PO SCH ×3 (10:00→21:48)
[2019-10-21] MEDS: ASCORBIC ACID 500 MG TAB PO SCH ×2 (10:00→10:06)
[2019-10-21] MEDS: DexAMETHasone SOD PHOS 10MG/1ML VIAL INJ IV SCH ×2 (10:00→10:06)
[2019-10-21] MEDS: DIGOXIN 0.125 MG TAB PO SCH ×2 (10:00→10:06)
[2019-10-21] MEDS: FAMOTIDINE 20 MG TAB PO SCH ×2 (10:00→10:06)
[2019-10-21] MEDS: Ensure HIGH Protein Chocolate 8oz Bottle PO SCH ×3 (10:05→18:08)
[2019-10-21] MEDS: cefTRIAXone 1GM/50ML D5W 50 ML IV SCH (10:05)
--- NOTE | 2019-10-21 10:15 | NUR ---
STATUS CHANGE UPON ASSESSMENT PT IS NON RESPONSIVE TO VERBAL STIMULI. PT RESPONDS ONLY TO TOUCH. PT CURRENTLY UNABLE TO FOLLOW COMMANDS. PULSES IRREGULAR AND WEAK. CURRENT VITAL SIGNS BP 138/77 TEMP: 96.9 RR:30 HR: 144 SPO2: 94% MD BUNDY NOTIFIED. PER HE WILL LOOK AT CT RESULTS AND COME TO ASSESS PATIENT
--- NOTE | 2019-10-21 10:30 | NUR ---
IV insertion IV access obtained, via clean sterile technique by inserting 22 gauge catheter at RIGHT WRIST after 2 attempt(s). IV secured properly. No trauma to site. Patient tolerated well.
--- NOTE | 2019-10-21 10:30 | NUR ---
IV removal IV DC'd with clean sterile technique, catheter fully intact. Pressure dressing applied to site. Patient tolerated well.
[2019-10-21] MEDS: SODIUM CHLORIDE 0.9% 1,000 ML IV SCH (11:15)
[2019-10-21] MEDS ORDERED: DIGOXIN (250MCG/ML) 2 ML AMPULE IV ONE ×2 (11:15→11:45)
--- NOTE | 2019-10-21 11:20 | NUR ---
MD BUNDY AT BEDSIDE MD ASSESSING PATIENT.
--- NOTE | 2019-10-21 11:57 | NUR ---
Nutrition Followup Note Wt 79.9kg Pt is covid positive in the covid wing. Pt ordered with a 2g Na diet with inadequate po intake aeb pt with avg po intake of 54% per Rn note. Continue with Ensure HP TID d/t to inadequate po intake. Est Energy needs: 0556-4668 kcals (20-23 kcal/kgBW) Est Protein needs: 80-88 gms/day (1.0-1.1 gm/kgBW) Will continue to monitor and reassess prn. Labs: BUN 51H, Creat 1.37H, Alb 3.2L, GLUC 183H BM: Pt with no BM recorded per RN note Skin: BS 17 mod risk, full details in healthcare or medical note PES: Altered nutrition related lab values r/t current/chronic medical condition aeb hyperglycemia, elev RFTs, mild hypoalbuminemia Comments: Will continue to monitor PO status, skin status, pertinent labs and weight trends. Will f/u in 3-5 days. 1) Continue to closely monitor pt PO intake to meet at least 75% of meals 2) Continue current plan of care Expected Outcomes/Goals: Pt appetite to improve Pt labs to improve
--- NOTE | 2019-10-21 13:14 | NUR ---
PT tx held today per RN due to pt unresponsive. Addendum: 10/21/19 at 1316 by Naga Mancuso SADDLE LINING STITCHER Amended: Links added.
--- NOTE | 2019-10-21 14:15 | NUR ---
assessment Patient is a 83 year old male who is confused. Per zully Diane this is new confusion. Per Roxi prior to admission patient was residing at [facility] and functioned with assistance of staff and [facility]. Patient is Covid positive. Patient resided at facility with his who on 10/09/19 from Covid. Patient was brought to the ER for confusion, cough, fever, and he fell twice. Per Roxi if patient is still confused on discharge he will go to a board and care [facility] in [place]. If patient becomes alert and oriented again he will go back to [facility]. Patient has a fww, scooter, and wheelchair for home use. I informed Roxi I will continue to monitor and follow up as appropriate. Roxi verbalized understanding. Addendum: 10/21/19 at 1424 by Zena CERDA Amended: Links added.
--- NOTE | 2019-10-21 14:20 | NUR ---
DAUGHTER JOSEPH UPDATED ON POC AND PATIENT STATUS FAMILY UPDATED. PASSWORD VERIFIED
--- NOTE | 2019-10-21 15:13 | NUR ---
MD NIHARIKA LORENZO RE: DAUGHTER WANTING TO SPEAK WITH HIM ABOUT AN UPDATE
[2019-10-21 17:00] VITALS: BP 175/88
--- NOTE | 2019-10-21 17:55 | NUR ---
PAGED ON-CALL HOSPITALIST RE: PT BP 177/84 WITH REPEAT OF 180/81 AWAITING CALL BACK
--- NOTE | 2019-10-21 18:02 | NUR ---
ON-CALL HOSPITALIST RETURNED PAGE NEW ORDERS RECEIVED
--- NOTE | 2019-10-21 18:10 | NUR ---
BP MEDICATIONS GIVEN PER ORDERS
[2019-10-21] MEDS ORDERED: METOPROLOL TARTRATE 50 MG TAB PO ONE (18:15)
[2019-10-21] MEDS ORDERED: METOPROLOL TARTRATE 1MG/1ML-5ML VIAL IV ONE (18:15)
--- NOTE | 2019-10-21 18:47 | NUR ---
HR REASSESSMENT 115 BPM
[2019-10-21] MEDS: LABETALOL HCL 5 MG/ML 4ML SYRINGE IV PRN ×2 (19:55→22:50)
[2019-10-21] MEDS: METOPROLOL TARTRATE 50 MG TAB PO SCH (21:48)
[2019-10-21 22:00] VITALS: BP 182/109
[2019-10-21 22:58] VITALS: BP 145/79
[2019-10-22 00:05] VITALS: BP 159/87
[2019-10-22] MEDS: LABETALOL HCL 5 MG/ML 4ML SYRINGE IV PRN (02:12)
[2019-10-22] MEDS: SODIUM CHLORIDE 0.9% 1,000 ML IV SCH (03:55)
[2019-10-22 05:02] VITALS: BP 143/71
[2019-10-22] MEDS: LEVOTHYROXINE SODIUM 100 MCG TAB PO SCH (06:45)
[2019-10-22] MEDS: MIDODRINE HCL 10 MG TAB PO SCH (06:45)
[2019-10-22 07:35] LABS: Basophils # (auto) 0 10 ^3/uL (0-0.2); Eosinophils # (auto) 0 10 ^3/uL (0-0.8); Lymphocytes # (auto) 0.3 10 ^3/uL (0.4-5.4); White Blood Cell 17.8 10^3/uL (4.4-10.8)
[2019-10-22 07:37] LABS: Basophils % (auto) 0.1 % (0.0-2.0); Hematocrit 28.8 % (41.0-53.0); Lymphocytes % (auto) 1.6 % (10.0-50.0); Mean Corpuscular Hemoglobin 25.9 pg (28.0-32.0); Mean Corpuscular Hgb Conc. 31.3 g/dL (32.0-36.0); Mean Corpuscular Volume 82.8 fL (80.0-100.0); Monocytes # (auto) 1.2 10 ^3/uL (0-1.3); Monocytes % (auto) 6.9 % (0.0-12.0); Neutrophils # (auto) 16.2 10 ^3/uL (1.6-8.6); Neutrophils % (auto) 91.4 % (37.0-80.0); Nucleated Red Blood Cells % 0.7 %; Platelet Count (auto) 90 10^3/uL (140-450); Red Blood Cells 3.48 10^6/uL (4.5-5.90)
[2019-10-22 07:43] LABS: Red Cell Distribution Width 20.5 % (11.8-14.3)
[2019-10-22 07:57] LABS: Albumin 2.7 g/dL (3.4-5.0); BUN/Creatinine Ratio 27.9; Calcium 8.8 mg/dL (8.5-10.1)
[2019-10-22 07:59] LABS: Folate (Folic Acid) 4.86 ng/mL (5.38-24)
[2019-10-22 08:04] LABS: Bilirubin, Total 0.8 mg/dL (0.2-1.0); Total Protein 6.9 g/dL (6.4-8.2)
[2019-10-22 09:00] VITALS: BP 158/88
[2019-10-22] MEDS ORDERED: LABETALOL HCL 5 MG/ML 4ML SYRINGE IV PRN (09:15)
[2019-10-22] MEDS: Ensure HIGH Protein Chocolate 8oz Bottle PO SCH (09:57)
[2019-10-22] MEDS: cefTRIAXone 1GM/50ML D5W 50 ML IV SCH (09:57)
[2019-10-22] MEDS: DexAMETHasone SOD PHOS 10MG/1ML VIAL INJ IV SCH (09:58)
[2019-10-22] MEDS: DIGOXIN 0.125 MG TAB PO SCH (09:59)
[2019-10-22] MEDS: ASCORBIC ACID 500 MG TAB PO SCH (10:00)
[2019-10-22] MEDS: METOPROLOL TARTRATE 50 MG TAB PO SCH ×2 (10:00→21:45)
[2019-10-22] MEDS: APIXABAN 2.5 MG TAB PO SCH (10:00)
[2019-10-22] MEDS: ZINC SULFATE 220mg CAP or TAB PO SCH (10:00)
[2019-10-22] MEDS: FAMOTIDINE 20 MG TAB PO SCH (10:00)
[2019-10-22] MEDS: D5W/SOD CHL 0.45% 1,000 ML IV SCH ×2 (10:01→22:09)
--- NOTE | 2019-10-22 11:19 | NUR ---
Pt not seen today per RN due to continued unresponsiveness. Addendum: 10/22/19 at 1121 by Naga Mancuso TRENCHING MACHINE OPERATOR Amended: Links added.
[2019-10-22 12:47] VITALS: BP_SYST 90
--- NOTE | 2019-10-22 13:00 | NUR ---
MD SARAHI BUNDY AT BEDSIDE. NEW ORDERS RECEIVED. WILL IMPLEMENT NEW ORDERS PER PROTOCAL
--- NOTE | 2019-10-22 13:15 | NUR ---
WOUND CARE NOTE: Wound care in to see patient for reevaluation of multiple skin integrity present on admission. Patient is resting in bed in Rm. 250A. Patient is awake but not oriented. Nurse's aide at bedside. Patient needs assistance in turning and repositioning. His Can score is 17. Skin assessment done with the help of nurse's aide at bedside. Patient's bilateral arm and BLE continue to display multiple dry, intact scabbed wounds. Multiple abrasions and ecchymosis to his Rt head, Rt periorbital, hips, knees and back remain intact and fading. Intertriginous dermatitis to patient's intragluteal fold, bilateral groin and scrotal area are also much improved, display intact pink skin. Patient continue receiving BID/PRN cleaning and application of Barrier cream to sacral, buttocks and groin intertrigo per MD order. New photograph of wounds are taken for reference. Repositioned patient for comfort facing his Rt side, redistributed pressure points with pillows. Patient tolerated well, nurse's aide at bedside. RECOMMENDATION: Continuation of all wound care orders MD prescribed, continue with skin/wound preventative plan of care, continue monitoring by wound care while patient is hospitalized. Addendum: 10/22/19 at 1743 by Gwen Mota RN Amended: Links added.
[2019-10-22] MEDS ORDERED: PIPERACILLIN-TAZOB 2.25GM 50 ML IV ONE (14:00)
[2019-10-22] MEDS ORDERED: Jevity 1.2 Cal/Fiber 1 Liter GT SCH (14:00)
--- NOTE | 2019-10-22 14:28 | NUR ---
NEPHROLOGY CONSULT MD RODRIGUEZ CALLED INTO THE STATION FOR PATIENT INFORMATION UPDATED ON CURRENT PATIENT STATUS AND POC. NO NEW ORDERS RECEIVED
--- NOTE | 2019-10-22 15:58 | NUR ---
UNSUCCESSFUL NG TUBE INSERTION.
--- NOTE | 2019-10-22 16:42 | NUR ---
MD BUNDY UPDATED ON UNSECCESSFUL NGT INSERTION PER MD RN IS TO ENDORSE INSERTION TO NEXT SHIFT AND GIVE THE PATIENT A BREAK. THIS RN WILL IMPLEMENT ORDERS
[2019-10-22 17:00] VITALS: BP 163/92
--- NOTE | 2019-10-22 19:30 | NUR ---
Opening Shift Note Assumed care of patient, unresponsive. No S/S of distress/SOB or pain. Will continue to monitor for changes Q1hr and PRN. Fall and safety precautions in place. Call light within reach. attendant honor bar at bedside for patient safety.
[2019-10-22 21:00] VITALS: BP 145/99
--- NOTE | 2019-10-22 22:00 | NUR ---
NGT ATTEMPT/SWALLOW Attempted to administer scheduled 2200 medications, but patient unable to swallow. Patient not alert or following commands. Patient unresponsive. Unable to insert NGT per MD order at this time. Will reassess patient's alertness and attempt again at later time.
[2019-10-22] MEDS: PIPERACILLIN-TAZOB 2.25GM 50 ML IV SCH (23:30)
[2019-10-23 05:00] VITALS: BP 134/85
[2019-10-23] MEDS: LEVOTHYROXINE SODIUM 100 MCG TAB PO SCH (05:32)
[2019-10-23] MEDS: PIPERACILLIN-TAZOB 2.25GM 50 ML IV SCH ×4 (05:32→23:59)
[2019-10-23 07:36] LABS: Basophils # (auto) 0 10 ^3/uL (0-0.2); Basophils % (auto) 0.1 % (0.0-2.0); Eosinophils # (auto) 0 10 ^3/uL (0-0.8); Hematocrit 26.8 % (41.0-53.0); Hemoglobin 8.5 g/dL (13.5-17.5); Lymphocytes # (auto) 0.4 10 ^3/uL (0.4-5.4); Lymphocytes % (auto) 2.2 % (10.0-50.0); Mean Corpuscular Hemoglobin 25.8 pg (28.0-32.0); Mean Corpuscular Hgb Conc. 31.6 g/dL (32.0-36.0); Mean Corpuscular Volume 81.5 fL (80.0-100.0); Monocytes # (auto) 1.3 10 ^3/uL (0-1.3); Monocytes % (auto) 6.7 % (0.0-12.0); Neutrophils # (auto) 17.6 10 ^3/uL (1.6-8.6); Nucleated Red Blood Cells % 0.6 %; Red Blood Cells 3.29 10^6/uL (4.5-5.90); White Blood Cell 19.3 10^3/uL (4.4-10.8)
[2019-10-23 07:37] LABS: Red Cell Distribution Width 20.7 % (11.8-14.3)
[2019-10-23 07:40] LABS: Calcium 8.6 mg/dL (8.5-10.1); Potassium 5.4 mmol/L (3.5-5.1)
--- NOTE | 2019-10-23 07:40 | NUR ---
Opening shift note Assumed care of patient from NOC RN Katelin. Patient is AOXo, patient is not responsive to voice or to touch. No s/s of shortness of breath or distress noted. Bed is in lowest locked position, side rails up x3, product safety manager at bedside and call light is within reach. Patient is unable to verbalize understanding to plan of care. Will continue to monitor q1hr and PRN.
[2019-10-23 07:41] LABS: Platelet Count (auto) 62 10^3/uL (140-450)
[2019-10-23 07:43] LABS: BUN/Creatinine Ratio 22.6
--- NOTE | 2019-10-23 07:46 | NUR ---
Critical lab Received critical lab result, will page clinical information systems director hospitalist.
--- NOTE | 2019-10-23 07:57 | NUR ---
Paged promotions officer Placed page to promotions officer hospitalist regarding critical lab result. Awaiting call back.
--- NOTE | 2019-10-23 08:30 | NUR ---
Received call from Received call from Dr. Schmitt. MD aware of critical lab value, new orders received, will follow through. Will continue to monitor q1hr and PRN.
[2019-10-23 09:00] VITALS: BP 159/84
[2019-10-23] MEDS: ASCORBIC ACID 500 MG TAB PO SCH (10:00)
[2019-10-23] MEDS: DIGOXIN 0.125 MG TAB PO SCH (10:00)
[2019-10-23] MEDS: METOPROLOL TARTRATE 50 MG TAB PO SCH (10:00)
[2019-10-23] MEDS ORDERED: ENOXAPARIN SOD 80 MG/0.8ML SYRINGE SC SCH (10:00)
[2019-10-23] MEDS: ZINC SULFATE 220mg CAP or TAB PO SCH (10:00)
[2019-10-23] MEDS ORDERED: SODIUM ZIRCONIUM CYCL 10 GM PAK PO ONE (10:15)
[2019-10-23] MEDS ORDERED: SODIUM BICARBONATE 8.4% INJ 50ML SYRINGE IV ONE (10:15)
[2019-10-23] MEDS ORDERED: DEXTROSE (50%) 50ML SYRG IV ONE (10:15)
[2019-10-23] MEDS ORDERED: BUMETANIDE 2.5mg/10ml (0.25 mg/ml) INJ IV ONE (10:15)
[2019-10-23] MEDS ORDERED: ALBUTEROL SULF 2.5 MG/0.5ML(0.5%) NEB SOLN NEB ONE (10:15)
[2019-10-23] MEDS ORDERED: InsuLIN REG 1unit/0.01ml Soln (100units/ml) IV ONE (10:15)
--- NOTE | 2019-10-23 10:15 | NUR ---
SWALLOW Patient is AOXo Unresponsive to touch and voice. Patient is unable to swallow and unable to follow commands. Unable to administer PO medications at this time. Will reassess patient at a later time. Will continue to monitor q1hr and PRN.
--- NOTE | 2019-10-23 11:00 | NUR ---
Received call from Received call from Dr. Christine, updated MD on patient status. No new orders received. Will continue care.
--- NOTE | 2019-10-23 12:16 | NUR ---
Pt has been unable to participate in therapy x3 days due to being unable to follow commands. Pt will be discharged from PT at this time but please reorder if pt becomes appropriate. RN aware.
[2019-10-23] MEDS: D5W/SOD CHL 0.45% 1,000 ML IV SCH (12:58)
[2019-10-23 13:00] VITALS: BP 126/74
--- NOTE | 2019-10-23 13:20 | NUR ---
colostomy emptied Colostomy emptied of brown mucus stool, mild odor noted. Will continue to monitor.
--- NOTE | 2019-10-23 13:40 | NUR ---
Physician rounding Dr. Manzo at bedside. Updated MD on patient status, new orders received, will follow through. Will continue to monitor q1hr and PRN.
[2019-10-23] MEDS ORDERED: SODIUM ZIRCONIUM CYCL 10 GM PAK PO SCH (14:00)
[2019-10-23] MEDS: DexAMETHasone SOD PHOS 4 MG/1ML SDV INJ IV SCH ×2 (14:10→21:40)
[2019-10-23 17:00] VITALS: BP 166/83
--- NOTE | 2019-10-23 19:00 | NUR ---
end of shift note endorsed care to NOC YARA Stephens. No s/s of distress noted.
--- NOTE | 2019-10-23 19:30 | NUR ---
Opening Shift Note Assumed care of patient, resting in bed with breaths even and unlabored. No S/S of distress/SOB or pain noted. Sitter is at the bedside and to turn patient [id number] and PRN.
--- NOTE | 2019-10-23 19:41 | NUR ---
Called Pharmacy: Called pharmacy regarding PPN order. No answer. Pharmacy not available at this time.
[2019-10-23] MEDS: CARBIDOPA W LEVODOPA 25/100mg TABLET PO SCH (21:52)
[2019-10-23 22:00] VITALS: BP 109/56
[2019-10-24] MEDS: D5W/SOD CHL 0.45% 1,000 ML IV SCH (00:02)
[2019-10-24 05:00] VITALS: BP 132/57
[2019-10-24] MEDS: CARBIDOPA W LEVODOPA 25/100mg TABLET PO SCH ×2 (06:00→14:00)
[2019-10-24] MEDS: DexAMETHasone SOD PHOS 4 MG/1ML SDV INJ IV SCH ×2 (06:10→14:28)
[2019-10-24] MEDS: PIPERACILLIN-TAZOB 2.25GM 50 ML IV SCH ×3 (06:11→18:20)
--- NOTE | 2019-10-24 06:45 | NUR ---
Called Pharmacy in AM: Called pharmacy regarding PPN order. Pharmacy stated that the order is not inputted completely and must be inputted correctly before it is given Will notify day shift RN.
--- NOTE | 2019-10-24 07:01 | NUR ---
Temperature: Cooling measures implemented. Patients temperature was 100.1.
--- NOTE | 2019-10-24 07:30 | NUR ---
Opening Shift Note RECEIVED REPORT FROM NOC RN. Assumed care of patient, UNCONSCIOUS. PATIENT ON OXYGEN AT 4 LPM VIA NASAL CANNULA WITH no S/S of distress/SOB or pain. BED IN LOWEST, LOCKED POSITION WITH SIDERAILS UP x2 AND CALL LIGHT WITHIN REACH AND SITTER AT BEDSIDE. Instructed on POC and to call for assist PRN, will continue to monitor for changes Q1hr and PRN.
--- NOTE | 2019-10-24 07:30 | NUR ---
RESPIRATORY NOTE POX CHECK DONE BY RT. HR 65, RR 16, SPO2 93% ON 4 L NC, BS CLEAR. NO SIGNS OR SYMPTOMS OF RESPIRATORY DISTRESS NOTED AT THIS TIME.
[2019-10-24 09:00] VITALS: BP 117/63
--- NOTE | 2019-10-24 11:31 | NUR ---
Nutrition Consult/Followup Notes Wt 79.0kg Pt is COVID positive. Pt is with a Pureed 2g Na diet with inadequate PO intake aeb ave 25% on 10/21 and refusal to eat since then per RN doc. NOTED pt is with recent Acute Renal failure after admit, therefore a recalculation of protein needs is warranted. Recalculated Protein needs: 39-63 gms/day (0.5-0.8 gm/kgBW @ current 79.0kg wt) RECOMMENDATION: 1) Disregard previous recommendation of Ensure High Protein supplemental shake. 2) Suggest a Renal Specific 50gProtein,2gNa,K2,lowphos diet 3) If pt appetite remains poor over the next 48 hours, consider alternate nutrition support. If EN nutrition is preferred route, consider Osmolite 1.2 @ 60 ml/hr as tolerated and per MD approval. Est Energy needs: 6199-8855 kcals (20-23 kcal/kgBW) Est Protein needs: 80-88 gms/day (1.0-1.1 gm/kgBW) Will continue to monitor and reassess prn. Labs: BUN 115H, Creat 5.09H, GFR 12 Alb 2.7L, GLUC 306H BM: Pt with 1 BM recorded on 10/22 per RN note Skin: BS 15 mod risk, full details in care trainer note PES: Altered nutrition related lab values r/t current/chronic medical condition aeb hyperglycemia, elev RFTs, mild hypoalbuminemia Comments: Will continue to monitor PO status, skin status, pertinent labs and weight trends. Will f/u in 3-5 days. 1) Continue to closely monitor pt PO intake to meet at least 75% of meals 2) Continue current plan of care
[2019-10-24] MEDS ORDERED: DOXYCYCLINE 100MG/250ML 250 ML IV SCH ×2 (12:30→15:00)
--- NOTE | 2019-10-24 12:30 | NUR ---
DR. BUI AT BEDSIDE.
[2019-10-24 13:00] VITALS: BP 108/49
[2019-10-24] MEDS ORDERED: PPN PER PHARMACY 0 ML IV SCH (13:00)
[2019-10-24 17:00] VITALS: BP 107/48
[2019-10-24] MEDS ORDERED: DEXTROSE (50%) 50ML SYRG IV SCH (18:00)
[2019-10-24] MEDS ORDERED: ACCU-CHEK COMFORT CURVE STRIP VI SCH (18:00)
[2019-10-24] MEDS ORDERED: InsuLIN REG 1unit/0.01ml Soln (100units/ml) SC SCH (18:00)
--- NOTE | 2019-10-24 18:30 | NUR ---
DR. BUI ADVISED ABOUT PATIENT'S BGL OF 427 / 415. NO NEW ORDERS RECEIVED.
--- NOTE | 2019-10-24 19:15 | NUR ---
Called lab: Called lab notifying them of state potassium still waiting to be drawn. instrument room technician stated she made security project manager aware. Waiting for lab draw.
--- NOTE | 2019-10-24 19:30 | NUR ---
Opening Shift Note Assumed care of patient, resting in bed with breaths even and unlabored. No S/S of distress/SOB or pain noted. Sitter is at the bedside and to turn patient [id number] and PRN.
--- NOTE | 2019-10-24 19:43 | NUR ---
Received call from Sitter: Received call from wang that patient appeared to be passing. Upon walking into the room patients breathing was abnormal. Stayed by the patients side till patient was no longer breathing, no pulse felt. Patient is DNR. Will call and notify charge nurse and call MD to notify.
--- NOTE | 2019-10-24 19:49 | NUR ---
Paged Hospitalist: Paged Hospitalist at this time to notify of patient passing. Waiting for call back.
--- NOTE | 2019-10-24 19:51 | NUR ---
DR Goodman called back: Dr. Goodman called back and notified of patients passing. Stated he will come up to confirm.
--- NOTE | 2019-10-24 19:57 | NUR ---
Called family: Called Roxi (daughter) and Moncho (son-in-Law) and verified password. Notified of situation and of patients passing. All questions answered. Family stated that they will not come to see the patient due to COVID situation but appreciate the offer. Family would like to send patient to [facility], # . To call Risk Management Consultant.
[2019-10-24] MEDS ORDERED: AMINO ACID INFUSION IN D5W 1,000 ML IV SCH (20:00)
--- NOTE | 2019-10-24 20:03 | NUR ---
Called [facility]: Called [facility] to notify of patients passing. Spoke with Mirella from [facility] regarding patient information and received referral ID number [id number]. Received approval to release the body to exhaust emissions inspector.
--- NOTE | 2019-10-24 20:24 | NUR ---
Dr Goodman at the bedside: Dr. Goodman at the bedside to confirm patients passing. EKG done and given to DR. Goodman to confirm of passing. Addendum: 10/24/19 at 2050 by Kim Munoz RN RN Time: Time meant for 2005
--- NOTE | 2019-10-24 20:36 | NUR ---
Called and Spoke with Coverer: Called and spoke with Coverer Ana Louis. Coverer stated that they are not taking cases right now due to patient load and gave approval to release the body. Stated that they are not giving case numbers.
--- NOTE | 2019-10-24 20:41 | NUR ---
Called [facility]: Called [facility] and spoke with Lynsey regarding patients body release from the supervisor cutting department and [facility]. Lynsey stated that they are not taking bodies until Friday and stated to call back on Friday at 8:30 A.M. To picker feeder the body. Number to contact [facility] is # .
--- NOTE | 2019-10-24 21:16 | NUR ---
Called Family: Spoke with Roxi yates and notified of patient being transferring to [facility] for [facility] since [facility] is full. Daughter consented for transfer, information of address and number provided to daughter to [facility] and that they will be calling for further information. Addendum: 10/25/19 at 0417 by Kim Munoz RN RN Number given to family [facility] facility: [phone]
--- NOTE | 2019-10-24 21:31 | NUR ---
Called [facility]: Called [facility] regarding shrimp picker to place patient in [facility] till [facility] opens to shrimp picker the patient. Will call back for an ETA.
--- NOTE | 2019-10-24 22:23 | NUR ---
Called [facility] again: Called [facility] again and spoke with Elisa regarding still not getting a call for ETA. Elisa stated shed send them information against to call back for ETA.
--- NOTE | 2019-10-24 22:26 | NUR ---
ETA: Conchis gordillo [facility] called back with ETA. Approximately 25-30 minutes away. Will clean and prepare the body for transport.
--- NOTE | 2019-10-24 22:58 | NUR ---
Conchis from [employer] called: Conchis from [facility] called and stated she was waiting at docking area. Paged security at this time to escort up here. Addendum: 10/24/19 at 0795 by Kim Munoz RN RN Also paged for house keeping.
--- NOTE | 2019-10-24 23:45 | NUR ---
Patient escorted down: Patient escorted down with security with bert Balderrama from [facility]. Copies of paper work made and given to security.
== END 2019-10-24 23:33 | disposition expired | DRG 871 ==
LOC: ER 05:00 → EDBD 05:00 → TELE 05:01 → TELE-EAST 17:21
PROVIDERS: ADMIT Internal Medicine; ATTEND Internal Medicine
DX: A41.89 Other specified sepsis (principal); U07.1 COVID-19; J12.89 Other viral pneumonia; N17.0 Acute kidney failure with tubular necrosis; I21.A1 Myocardial infarction type 2; J96.01 Acute respiratory failure with hypoxia; G92 Toxic encephalopathy; I48.20 Chronic atrial fibrillation, unspecified; I13.0 Hypertensive heart and chronic kidney disease with heart failure and stage 1 through stage 4 chronic kidney disease, or unspecified chronic kidney disease; E44.1 Mild protein-calorie malnutrition; D68.59 Other primary thrombophilia; N39.0 Urinary tract infection, site not specified; I25.10 Atherosclerotic heart disease of native coronary artery without angina pectoris; E11.43 Type 2 diabetes mellitus with diabetic autonomic (poly)neuropathy; E11.22 Type 2 diabetes mellitus with diabetic chronic kidney disease; Z91.81 History of falling; D69.6 Thrombocytopenia, unspecified; E03.9 Hypothyroidism, unspecified; E11.51 Type 2 diabetes mellitus with diabetic peripheral angiopathy without gangrene; E78.5 Hyperlipidemia, unspecified; E86.0 Dehydration; F17.200 Nicotine dependence, unspecified, uncomplicated; F32.9 Major depressive disorder, single episode, unspecified; G90.8 Other disorders of autonomic nervous system; G25.81 Restless legs syndrome; N18.3 Chronic kidney disease, stage 3 (moderate); D64.9 Anemia, unspecified; Z66 Do not resuscitate; I50.9 Heart failure, unspecified; G20 Parkinson's disease; R29.6 Repeated falls; S00.03XA Contusion of scalp, initial encounter; W18.39XA Other fall on same level, initial encounter; Y93.89 Activity, other specified; Y92.89 Other specified places as the place of occurrence of the external cause; Y99.8 Other external cause status; I25.2 Old myocardial infarction; Z79.01 Long term (current) use of anticoagulants; Z79.899 Other long term (current) drug therapy; Z82.49 Family history of ischemic heart disease and other diseases of the circulatory system; Z86.73 Personal history of transient ischemic attack (TIA), and cerebral infarction without residual deficits; Z83.3 Family history of diabetes mellitus; Z95.0 Presence of cardiac pacemaker; Z95.1 Presence of aortocoronary bypass graft; Z95.2 Presence of prosthetic heart valve; Z68.23 Body mass index [BMI] 23.0-23.9, adult
CPT/HCPCS: 36415; 36600; 70450; 71045; 72125; 72192; 80048; 80053; 80162; 81001; 82607; 82728; 82746; 82805; 82962; 83615; 83735; 84132; 84443; 84484; 85007; 85025; 85027; 85610; 85730; 86141; 87081; 94760; 94762; 97110; 97116; 97530; 99291; G0378; J0696; J1100; J1815; J2543; J3490